=== PATIENT | female | born 2005 | race Caucasian/White ===

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

== ENCOUNTER 2023-10-14 12:01 | Emergency (ER) | payer OTHER, SELFPAY ==
[2023-10-14 12:13] VITALS: BP 129/69; PULSE 87; RESP 18; TEMP 36.7; O2SAT 99
[2023-10-14 12:33] VITALS: BP 129/69; PULSE 87; RESP 18; TEMP 36.7; O2SAT 99
--- NOTE | 2023-10-14 12:39 | ED.URI ---
HPI - URI/Sore Throat General Chief Complaint: Upper Respiratory Infection Stated Complaint: Body Ache/Congestion/Sore Throat Time Seen by Provider: 10/14/23 12:25 Source: patient and RN notes reviewed Mode of arrival: ambulatory Limitations: no limitations History of Present Illness HPI Narrative: Patient presents today complaining of subjective fever, congestion, sore throat, body aches, headache. Symptoms began yesterday morning. She has been taking Tylenol, DayQuil, NyQuil with mild relief and currently rates her pain 7/10. States she was exposed influenza and RSV approximately 2 days ago. Related Data Home Medications Medication Instructions Recorded Confirmed fexofenadine-pseudoephedrine ER 1 tablet PO QAM 10/14/23 10/14/23 180 mg-240 mg tablet,ext.release 24 hr (Lisa-D 24 Hour) mometasone-formoterol HFA 200 inhalation 10/14/23 10/14/23 mcg-5 mcg/actuation aerosol inhaler (Dulera) Allergies Allergy/AdvReac Type Severity Reaction Status Date / Time ragweed pollen Allergy Mild Wheezing Verified 10/14/23 12:27 Cat Dander Allergy Mild Wheezing Uncoded 10/14/23 12:27 Grass Allergy Mild Wheezing Uncoded 10/14/23 12:27 Horse Dander Allergy Mild Wheezing Uncoded 10/14/23 12:27 Review of Systems Review of Systems: CONSTITUTIONAL: + subjective fever, body aches EYES: Denies visual changes, redness, or discharge. ENT: Denies rhinorrhea, or otalgia.+ congestion, sore throat CARDIOVASCULAR: Denies chest pain, palpitations, or edema. RESPIRATORY: Denies cough or dyspnea. GASTROINTESTINAL: Denies abdominal pain, nausea, vomiting, or diarrhea. GENITOURINARY: Denies dysuria or hematuria. SKIN: Denies rash, itching, or wounds. MUSCULOSKELETAL: Denies back pain, joint pain, or myalgia. NEUROLOGIC: Denies numbness, tingling, or weakness.+ headache PSYCH: Denies depression or anxiety. [facility] Past Medical History Medical History (Updated 10/14/23 @ 12:46 by Judy Arenas, APPLICATION PROCESSOR, ) Asthma Comments At time of signature, I have reviewed and agree with nursing past medical, surgical, social and family history unless otherwise noted. Please see nursing chart for further information. There is no relevant family history pertinent to the presenting complaint Exam Narrative: GENERAL: Mildly ill-appearing, well-nourished, and in no acute distress. HEAD: Normocephalic, atraumatic. EYES: EOMI. No redness or drainage. Conjunctivae normal. ENT: Mucous membranes pink and moist. Nares congested with rhinorrhea. TMs normal bilaterally. Throat erythematous with mild edema. No exudate.. Uvula midline. NECK: Normal AROM. Supple. No lymphadenopathy. CHEST: No respiratory distress. Clear to auscultation. HEART: Regular rate and rhythm. No murmur appreciated. EXTREMITIES: Normal range of motion. No edema. SKIN: Warm, dry, no rash. Capillary refill normal. Normal skin turgor. NEURO: No focal deficits. Alert and oriented x3. Gait steady. PSYCH: Normal affect. No signs of depression or anxiety. Course Course Level of Care: Express Care Visit Vital Signs Vital signs: Vital Signs Temperature 98.1 F 10/14/23 12:13 Pulse Rate 87 10/14/23 12:13 Respiratory Rate 18 10/14/23 12:13 Blood Pressure 129/69 10/14/23 12:13 Pulse Oximetry 99 10/14/23 12:13 Oxygen Delivery Room Air 10/14/23 12:13 Temperature 98.1 F 10/14/23 12:33 Pulse Rate 87 10/14/23 12:33 Respiratory Rate 18 10/14/23 12:33 Blood Pressure 129/69 10/14/23 12:33 Pulse Oximetry 99 10/14/23 12:33 Oxygen Delivery Room Air 10/14/23 12:33 Reviewed MDM - URI/Sore Throat MDM Narrative Medical decision making narrative: Testing negative. Strep culture pending. symptoms likely viral in etiology. Discussed [id number] medication use and duration of illness. Anticipatory guidance given. Differential Diagnosis Differential diagnosis: Likely upper respiratory infection, viral infection, influenz
== END 2023-10-14 12:50 | disposition home or self-care (01) ==
PROVIDERS: Emergency Provider Nurse Practitioner; PCP Pediatrics
DX: B34.9 Viral infection, unspecified (principal); Z20.822 Contact with and (suspected) exposure to COVID-19; J45.909 Unspecified asthma, uncomplicated
CPT/HCPCS: 87081; 87426; 87804; 87880; 99213; G0463

== ENCOUNTER 2024-08-13 11:09 | Emergency (ER) | payer OTHER, SELFPAY ==
[2024-08-13 11:29] VITALS: BP 111/73; PULSE 100; RESP 16; TEMP 37.1; O2SAT 98
--- NOTE | 2024-08-13 11:37 | ED.URI ---
HPI - URI/Sore Throat General Chief Complaint: Upper Respiratory Infection Stated Complaint: Headache/Fever/Congestion Time Seen by Provider: 08/13/24 11:35 Source: patient Mode of arrival: ambulatory Limitations: no limitations History of Present Illness HPI Narrative: Sofy is a 19-year-old female patient presenting to the clinic today with complaints of a headache, nasal congestion, chest congestion, and fever x3 days. He denies any chest pain but does report some shortness of breath occasionally. Does have a history of asthma and has been using her rescue inhaler as needed MD elicited complaint: sore throat and nasal congestion Related Data Home Medications Medication Instructions Recorded Confirmed fexofenadine-pseudoephedrine ER 1 tablet PO QAM 10/14/23 10/14/23 180 mg-240 mg tablet,ext.release 24 hr (Lisa-D 24 Hour) mometasone-formoterol HFA 200 inhalation 10/14/23 10/14/23 mcg-5 mcg/actuation aerosol inhaler (Dulera) Allergies Allergy/AdvReac Type Severity Reaction Status Date / Time ragweed pollen Allergy Mild Wheezing Verified 10/14/23 12:27 Cat Dander Allergy Mild Wheezing Uncoded 10/14/23 12:27 Grass Allergy Mild Wheezing Uncoded 10/14/23 12:27 Horse Dander Allergy Mild Wheezing Uncoded 10/14/23 12:27 Review of Systems Review of Systems: Pertinent positives per HPI. Patient denies any fever, chills, rash, headache, visual changes, dizziness, cough, shortness of breath, chest pain, palpitations, nausea, vomiting, diarrhea, constipation, abdominal pain, or any urinary issues. PMFSH Past Medical History Medical History (Updated 08/13/24 @ 11:50 by Sonu Andersen APRN) Asthma Comments At the time of my signature, I reviewed and agree with the nursing past medical, surgical, social, and family history. There is no relevant family history pertinent to the patient complaint. Exam Narrative: General: Well-developed, well nourished, in no apparent distress Head: Normocephalic, atraumatic Eyes: Pupils equally round and reactive to light bilaterally, EOM intact, sclera and conjunctive clear, no discharge, lids normal Ears: TMs intact and clear, ear canals clear, no drainage, grossly hearing normal. Nose: Nares patent, no discharge, no inflammation, no sinus tenderness. Mouth: Oral pharynx without lesions or masses, good dentition, MMM. Neck: Supple, trachea midline, no enlargement of anterior or posterior cervical nodes, no thyroid masses or goiter palpable. Cardio: Regular rate and rhythm, s1 and s2 normal, no murmur appreciated. Resp: Clear to auscultation bilaterally, no rhonchi, rales, wheezing or rubs Course Course Emergency Course: Portions of this record may have been created with voice recognition software. Level of Care: Express Care Visit Vital Signs Vital signs: Vital Signs Temperature 37.1 C 08/13/24 11:29 Pulse Rate 100 08/13/24 11:29 Respiratory Rate 16 08/13/24 11:29 Blood Pressure 111/73 08/13/24 11:29 Pulse Oximetry 98 08/13/24 11:29 Temperature 37.1 C 08/13/24 11:29 Pulse Rate 100 08/13/24 11:29 Respiratory Rate 16 08/13/24 11:29 Blood Pressure 111/73 08/13/24 11:29 Pulse Oximetry 98 08/13/24 11:29 Vital signs reviewed MDM - URI/Sore Throat MDM Narrative Medical decision making narrative: At the time of visit patient is resting comfortably on the exam table. Patient appears to be nontoxic. Labs: Influenza and strep test was done. Strep and influenza both were negative. We will send strep culture. Plan: I suspect patient has acute right otitis media, URI, pharyngitis. Prescription for amoxicillin and prednisone was sent to pharmacy. Supportive measures were discussed with the patient and they voiced understanding discharge instructions and agrees to treatment plan. Return precautions reviewed Differential Diagnosis Differential diagnosis: Likely upper respiratory infection, otitis media, sinusitis, viral infection, bronchitis, influenza, pharyngitis and other (COVID) Lab Data Labs: Lab Results 08/13/24 Range/Units 11:32 POC Influenza A Ag Negative (Negative) POC Influenza B Ag Negative (Negative) POC Grp A Strep Screen Negative (Negative) Discharge Plan Discharge Clinical Impression: Acute right otitis media Upper respiratory infection Qualifiers: URI type: unspecified URI Qualified Code(s): J06.9 - Acute upper respiratory infection, unspecified Pharyngitis Qualifiers: Pharyngitis/tonsillitis etiology: unspecified etiology Qualified Code(s): J02.9 - Acute pharyngitis, unspecified Patient Disposition: Home, Self-Care Condition: Stable Instructions: Antibiotic Form, Pharyngitis (ED), Ear Infection (ED), Cold Symptoms (ED) Additional Instructions: Strep and influenza testing was negative in the clinic today. We will send strep for culture. Take prescription medications only as prescribed-amoxicillin and prednisone Increase fluids and stay well hydrated Tylenol/motrin for pain/fever Flonase and OTC antihistamines as directed Vicks vapor rub to open sinuses Sinus rinses for congestion Cepacol spray, cough drops, throat lozenges, warm tea with honey/lemon, gargle salt water to soothe throat BRAT diet for diarrhea Clear liquids x 24 hours then advance as tolerated for nausea/vomiting Go to the ED if you develop a worsening in your condition- high fever not controlled by Tylenol or Motrin, dehydration, weakness, lethargy, shortness of breath, or chest pain. Follow up with your PCP in 3-5 days if symptoms persist. Prescriptions: New amoxicillin 875 mg tablet 875 mg PO Q12H 10 Days Qty: 20 0RF prednisone 20 mg tablet 40 mg PO DAILY 5 Days Qty: 10 0RF No Action Dulera 200-5 mcg/actuation HFA aerosol inhaler INHALATION Rx Instructions: as prescribed fexofenadine-pseudoephedrine [Lisa-D 24 Hour] 180-240 mg Tablet Extended Release 24 Hr 1 tablet PO QAM Follow-up/Referrals: PHYSICIAN,[employer] [Primary Care Provider] - Time of Disposition: 11:50 Quality NIHSS Nursing Documentation ED NIHSS nursing documentation: reviewed/agree
[2024-08-13 11:48] LABS: EDINFLUASCREEN Negative (Negative); EDINFLUBSCREEN Negative (Negative); EDSTREPNEGPOS1 Negative (Negative)
== END 2024-08-13 12:00 | disposition home or self-care (01) ==
PROVIDERS: Emergency Provider Nurse Practitioner Family
DX: H66.91 Otitis media, unspecified, right ear (principal); J06.9 Acute upper respiratory infection, unspecified; J02.9 Acute pharyngitis, unspecified; J45.909 Unspecified asthma, uncomplicated
CPT/HCPCS: 87081; 87804; 87880; 99213; G0463